=== PATIENT | male | born 1955 | race Caucasian/White ===

== ENCOUNTER 2017-08-22 13:42 | Day surgery (SDC) | payer BC ==
[~2017-08-22] VITALS: Ht 180.3 cm; Wt 158.6 kg
--- NOTE | ~2017-08-22 | OP ---
PATIENT NAME: ZULLY VILLATORO MEDICAL RECORD: [id number] [facility] DATE: SURGEON: CORDELIA MEANS DO DATE OF OPERATION: 08/22/2017 PROCEDURE: EGD with biopsies and colonoscopy with biopsy and polypectomy. INDICATION FOR PROCEDURES: History of colon polyps, family history positive for colon cancer in father, heartburn. SCOPE: Olympus video gastroscope and Olympus video pediatric colonoscope. MEDICATIONS: Propofol 700 mg IV total per anesthesia. Withdrawal time on colonoscopy 15 minutes. ESTIMATED BLOOD LOSS: Minimal. COMPLICATIONS: None. FINDINGS: Informed consent was given. The patient was made comfortable with the above medication. After reaching an adequate level of sedation by slow IV push, the patient was placed on his left side. The upper endoscope was advanced under direct visualization through the mouth to the second portion of the duodenum. The upper and middle portions of the esophagus appeared normal. In the distal esophagus, there was evidence of long segment Ochoa's mucosa with 4 separate tongues. Then, the Ochoa's itself was from approximately 33 cm from the incisors down to 39 cm. There were no nodules or abnormal appearing mucosa within the Ochoa's mucosa itself. Multiple biopsies were taken in quadrants at 35 cm, 37 cm, and 39 cm. There was evidence of a hiatal hernia proximally and distally within the stomach upon retroflexion. 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 The mucosa of the stomach appeared normal. Random biopsies were taken to submit for histology and to rule out H. pylori. The examined portions of the duodenum appeared normal other than a small focus of round tissue approximately 3-4 mm in diameter in the mucosa. It did not specifically appear abnormal from surrounding tissue, but was well circumscribed, so a biopsy was taken of the site in its whole and completely removed for histology. The endoscope was then withdrawn from the patient. The patient tolerated this portion of the procedure well and there were no complications. The patient was then turned for a colonoscopy. A digital rectal examination was performed and was normal. The endoscope was then advanced under direct visualization through the rectum to the cecum with visualization of the appendiceal orifice and ileocecal valve. There was evidence of mild diverticulosis involving the descending and sigmoid colon. There was a prior anastomosis at the sigmoid region from a past colon resection. There were a few polyps located on today's examination. Three were in the cecum. There were benign-appearing and sessile and ranged in size from 3-4 mm in diameter. They were all removed with hot forceps in 1 piece and completely retrieved. There was an avascular malformation in the cecum, which was ablated with a hot forceps. In the ascending colon, there were a few lipomas. One site was questionable between the lipoma versus serrated tissue, so a single biopsy was taken with cold forceps. In the transverse colon, there was another benign appearing sessile polyp which measured approximately 4 mm in size. It was removed using hot forceps in 1 piece and completely retrieved. Retroflexion was performed in the rectum with a visualization of grade I internal hemorrhoids OPERATIVE REPORT [id number] ZULLY VILLATORO without bleeding. The endoscope was then withdrawn from the patient. The patient tolerated the procedure well and there were no complications. IMPRESSIONS: For the 2 procedures include: 1. Long segment Ochoa's mucosa from 33 to 39 cm, multiple biopsies taken. 2. Small sliding hiatal hernia. 3. Normal gastric and duodenal tissue with random biopsies taken in the stomach and a single biopsy taken in the duodenum. 4. Multiple polyps removed from the cecum and transverse colon. 5. Single avascular malformation/angioectasia, which was ablated in the cecum. 6. A few lipomas noted in the ascending colon. 7. Diverticulosis. 8. Grade I internal hemorrhoids without bleeding. PLAN AND RECOMMENDATIONS: 1. Discharge home when recovery parameters are met. 2. Follow up biopsy specimen results. 3. Recall EGD in 2 years for surveillance of Ochoa's without dysplasia. 4. Likely recall colonoscopy in 5 years based on family history of colon cancer and number of types of polyps removed on today's examination. This may be moved up to 3 years pending pathology results. 5. High fiber diet. 6. Continue current medications. TRANSINT:[id number] Voice Confirmation ID: [id number] DOCUMENT ID: [id number] CORDELIA MEANS DO at 1119 CC: [id number] DICTATION DATE: 08/22/17 1518 PHOTOGRAVURE PRESS OPERATOR: 08/22/17 1642 [facility] 08/22/17 [id number] [place] [address]
[2017-08-22] MEDS ORDERED: OMEPRAZOLE40 MG PO (14:02)
[2017-08-22] MEDS ORDERED: BAYER CHEWABLE81 MG PO (14:02)
[2017-08-22] MEDS ORDERED: FLOMAX0.4 MG PO (14:02)
[2017-08-22] MEDS ORDERED: HYZAAR 100-12.51 TAB PO (14:02)
[2017-08-22 14:10] VITALS: BP 124/73; Ht 180.3 cm; Wt 158.6 kg
[2017-08-22 14:31] LABS: HEMATOCRIT 45.2 % (42.0-54.0); HEMOGLOBIN 15.7 g/dL (13.5-17.5); MCH 28.5 pg (26.0-34.0); MCHC 34.7 g/dL (31.0-37.0); MCV 82.2 fL (80.0-100.0); MEAN PLATELET VOLUME 9.5 fL (7.4-10.4); RBC 5.5 10x6/uL (4.20-6.10); RDW 13.7 % (11.5-14.5); WBC 8.9 10x3/uL (4.8-10.8)
== END 2017-08-22 16:07 | disposition home or self-care (01) ==
LOC: D.OPS 13:42
PROVIDERS: Anesthesiology
DX: K21.9 Gastro-esophageal reflux disease without esophagitis (principal); K22.70 Barrett's esophagus without dysplasia; K44.9 Diaphragmatic hernia without obstruction or gangrene; D12.0 Benign neoplasm of cecum; D12.3 Benign neoplasm of transverse colon; Z80.0 Family history of malignant neoplasm of digestive organs; I10 Essential (primary) hypertension; K64.0 First degree hemorrhoids; K57.30 Diverticulosis of large intestine without perforation or abscess without bleeding; Z01.812 Encounter for preprocedural laboratory examination

== ENCOUNTER → 2018-01-18 08:14 | Outpatient (CLI) | payer BC ==
[2017-08-22 14:10] VITALS: BMI 48.7
[~2018-01-18 08:14] MED LIST: BAYER CHEWABLE81 MG PO; FLOMAX0.4 MG PO; HYZAAR 100-12.51 TAB PO; OMEPRAZOLE40 MG PO
== END | disposition home or self-care (01) ==
LOC: D.CT 08:14
DX: R10.9 Unspecified abdominal pain (principal)

== ENCOUNTER → 2018-11-20 11:57 | Outpatient (CLI) | payer BC ==
[2017-08-22 14:10] VITALS: BMI 48.7
[2018-11-20 12:42] LABS: BASOPHILS 0.1 % (0-2); HEMATOCRIT 48.5 % (42.0-54.0); IMMATURE GRANULOCYTES 0.1 % (0-5); LYMPHOCYTES 24.8 % (15-50); MCH 21.9 pg (26.0-34.0); MCHC 30.9 g/dL (31.0-37.0); MCV 70.7 fL (80.0-100.0); MEAN PLATELET VOLUME 8.9 fL (7.4-10.4); MONOCYTES 9.2 % (2-11); NEUTROPHILS 64.8 % (40-80); PLATELET COUNT 203 10x3/uL (130-400); RDW 19.9 % (11.5-14.5)
[2018-11-20 12:43] LABS: APPEARANCE CLEAR (CLEAR); BILIRUBIN NEGATIVE (NEGATIVE); COLOR YELLOW (YELLOW); GLUCOSE NEGATIVE (NEGATIVE); KETONE NEGATIVE (NEGATIVE); NITRITE NEGATIVE (NEGATIVE); PROTEIN NEGATIVE (NEGATIVE)
[2018-11-20 12:57] LABS: RBC 6.86 10x6/uL (4.20-6.10)
[2018-11-20 13:05] LABS: ALBUMIN 3.6 g/dL (3.4-5.0); ANION GAP 3.5 mmol/L (8-16); BILIRUBIN - DIRECT 0.29 mg/dL (0.00-0.30); BILIRUBIN - INDIRECT 0.81 mg/dL (0.00-1.00); BILIRUBIN - TOTAL 1.1 mg/dL (0.2-1.3); CALCIUM 8.8 mg/dL (8.5-10.1); CARBON DIOXIDE 34.4 mmol/L (21.0-32.0); CREATININE - SERUM 1.2 mg/dL (0.6-1.3); POTASSIUM - SERUM 3.9 mmol/L (3.5-5.1); PROTEIN - SERUM 7.1 g/dL (6.4-8.2)
== END | disposition home or self-care (01) ==
LOC: D.LAB 11:57
PROVIDERS: ATTEND Internal Medicine Gastroenterology
DX: Z80.0 Family history of malignant neoplasm of digestive organs (principal); R10.9 Unspecified abdominal pain

== ENCOUNTER 2019-03-06 06:44 | Outpatient (CLI) | payer BC ==
[~2019-03-06] VITALS: Ht 180.3 cm; Wt 161.4 kg
[2019-03-06 08:41] VITALS: Ht 180.3 cm; Wt 161.4 kg
[2019-03-06 10:08] LABS: BASOPHILS 0.1 % (0-2); HEMATOCRIT 46.5 % (42.0-54.0); HEMOGLOBIN 15.3 g/dL (13.5-17.5); IMMATURE GRANULOCYTES 0.4 % (0-5); LYMPHOCYTES 27.5 % (15-50); MCH 27.7 pg (26.0-34.0); MCHC 32.9 g/dL (31.0-37.0); MCV 84.2 fL (80.0-100.0); MEAN PLATELET VOLUME 8.9 fL (7.4-10.4); MONOCYTES 6.6 % (2-11); NEUTROPHILS 63.4 % (40-80); PLATELET COUNT 181 10x3/uL (130-400); RBC 5.52 10x6/uL (4.20-6.10); RDW 16.8 % (11.5-14.5); WBC 7.8 10x3/uL (4.8-10.8)
[2019-03-06 10:23] LABS: CALCIUM 8.7 mg/dL (8.5-10.1); CARBON DIOXIDE 33.4 mmol/L (21.0-32.0); CREATININE - SERUM 1.1 mg/dL (0.6-1.3); POTASSIUM - SERUM 4.4 mmol/L (3.5-5.1)
[2019-03-06 10:39] LABS: INR 1.04 (0.85-1.17); PROTIME 13.1 SECONDS (11.6-15.0)
[2019-03-06 10:40] LABS: APTT 35.7 SECONDS (22.8-39.4)
--- NOTE | 2019-03-06 12:27 | NUR ---
1200 SEE POST PROCEDURE CHECKLIST FOR VITAL SIGN TRENDS.
== END 2019-03-06 15:55 | disposition home or self-care (01) ==
LOC: D.SP 06:44 → D.OPS 06:44 → D.CT 06:44 → D.OPS 15:55
PROVIDERS: Radiology Diagnostic Radiology; ATTEND Internal Medicine Gastroenterology
DX: R10.9 Unspecified abdominal pain (principal); R63.4 Abnormal weight loss; R19.4 Change in bowel habit; K76.0 Fatty (change of) liver, not elsewhere classified; R94.5 Abnormal results of liver function studies